=== PATIENT | male | born 1985 | race Caucasian/White ===

== ENCOUNTER 2020-07-23 10:43 | Inpatient (IN) | payer BC ==
--- NOTE | 2020-07-23 12:59 | HP ---
COWS - Scale Resting Pulse: 1= [place] 81-100 Sweatin= Chills/Flushing Restless Observation: 3= Extraneous Movement Pupil Size: 0= Normal to Room Light Bone or Joint Aches: 2= Severe Diffuse Aches Runny Nose/ Eye Tearin= Runny Nose/Eyes GI Upset > 30mins: 2= Nausea/Diarrhea Tremor Observation: 2= Slight Tremor Visible Yawning Observation: 1= 1-2x During Session Anxiety or Irritability: 2=Irritable/Anxious Goose Flesh Skin: 3=Piloerection COWS Score: 19 CIWA Score Nausea/Vomitin Muscle Tremors: 2 Anxiety: 2 Agitation: 2 Paroxysmal Sweats: 2 Orientation: 0-Oriented Tacttile Disturbances: 1-Very Mild Itch/Numbness Auditory Disturbances: 1-Very Mild Visual Disturbances: 1-Very Mild Sensitivity Headache: 0-None Present CIWA-Ar Total Score: 13 - Admission Criteria OASAS Guidelines: Admission for Medically Managed Detox: Requires at least one of the followin. CIWA greater than 12 2. Seizures within the past 24 hours 3. Delirium tremens within the past 24 hours 4. Hallucinations within the past 24 hours 5. Acute intervention needed for co occurring medical disorder 6. Acute intervention needed for co occurring psychiatric disorder 7. Severe withdrawal that cannot be handled at a lower level of care (continued vomiting, continued diarrhea, abnormal vital signs) requiring intravenous medication and/or fluids 8. Patient presents the following: CIWA greater than 12 Admission Criteria Met: Admission criteria met Admitting History and Physical - Smoking History Smoking history: Current every day smoker Have you smoked in the past 12 months: No Aproximately how many cigarettes per day: [address] [facility] Chief Complaint: I am here to get off of heroin Allergies/Adverse Reactions: Allergies Allergy/AdvReac Type Severity Reaction Status Date / Time Fish Containing Products Allergy Severe Verified 10/07/18 20:04 History of Present Illness: Patient is a 35 years old man who presents for heroin and alcohol detox. His last treatment was at [place] 1 week ago but he reports signing out AMA after 2 days. He reports his doctor gave him Xanax for 5 days which was completed 3 days ago. He denies seizures but reports overdose a year ago. Exam Limitations: No Limitations - Ebola screening Have you traveled outside of the country in the last 21 days: No Have you had contact with anyone from an Ebola affected area: No Have you been sick,other than usual withdrawal symptoms: No Do you have a fever: No - Review of Systems Constitutional: Chills, Loss of Appetite, Changes in sleep EENT: reports: Nose Congestion Respiratory: reports: No Symptoms reported Cardiac: reports: No Symptoms Reported GI: reports: Diarrhea, Nausea, Abdominal cramping : reports: No Symptoms Reported Musculoskeletal: reports: Back Pain, Joint Pain, Muscle Pain Integumentary: reports: Flushing Neuro: reports: Numbness, Tingling, Tremors Endocrine: reports: No Symptoms Reported Hematology: reports: No Symptoms Reported Psychiatric: reports: Anxious Other Systems: Reviewed and Negative Patient History - Patient Medical History Hx Anemia: No Hx Asthma: No Hx Chronic Obstructive Pulmonary Disease (COPD): No Hx Cancer: No Hx Cardiac Disorders: No Hx Congestive Heart Failure: No Hx Hypertension: No Hx Hypercholesterolemia: No Hx Pacemaker: No HX Cerebrovascular Accident: No Hx Seizures: No Hx Dementia: No Hx Diabetes: No Hx Gastrointestinal Disorders: No Hx Liver Disease: No Hx Genitourinary Disorders: No Hx Sexually Transmitted Disorders: No Hx Renal Disease (ESRD): No Hx Thyroid Disease: No Hx Human Immunodeficiency Virus (HIV): No Hx Hepatitis C: No Hx Depression: No Hx Suicide Attempt: No Hx Bipolar Disorder: No Hx Schizophrenia: No - Patient Surgical History Past Surgical History: No Hx Cholecystectomy: Yes (15 years ago) Anesthesia Reaction: No - PPD History Previous Implant?: No Documented Results: Negative w/o proof Implanted On Prior R Admission?: No PPD to be Administered?: Yes - Smoking Cessation Smoking history: Current every day smoker Have you smoked in the past 12 months: Yes Aproximately how many cigarettes per day: 40 Hx Chewing Tobacco Use: No Initiated information on smoking cessation: Yes 'Breaking Loose' booklet given: 07/23/20 - Substance & Tx. History Hx Alcohol Use: Yes Hx Substance Use: Yes Substance Use Type: Alcohol Hx Substance Use Treatment: Yes - Substances abused Alcohol Other (specify): whisky Substance route: Oral Amount used: 1 pint, 6 beers Age of first use: 9 Date of last use: 07/22/20 Heroin Substance route: Injection Frequency: Daily Amount used: 3 bags Age of first use: 26 Date of last use: 07/22/20 Marijuana/Hashish Substance route: Smoking Frequency: 1-3 times last 30 days Amount used: 1 gram Age of first use: 9 Date of last use: 07/22/20 Admission Physical Exam [facility] Physical General Appearance: Yes: No Apparent Distress, Irritable HEENTM: Yes: Hearing grossly Normal, Normocephalic, Normal Voice, THAI Respiratory: Yes: Chest Non-Tender, Lungs Clear, Normal Breath Sounds, No Respiratory Distress, No Accessory Muscle Use Neck: Yes: No masses,lesions,Nodules, Supple Breast: Yes: Breast Exam Deferred Cardiology: Yes: Regular Rhythm, Regular Rate, S1, S2 Abdominal: Yes: Normal Bowel Sounds, Non Tender, Soft Genitourinary: Yes: Within Normal Limits Back: Yes: Normal Inspection Musculoskeletal: Yes: full range of Motion, Gait Steady, Pelvis Stable, Back pain, Muscle Pain, Muscle weakness Extremities: Yes: Tremors, Other (left elbow and left knee bruise/abrasion from fall) Integumentary: Yes: Clammy, Track Michelle (both arms) Lymphatic: Yes: Within Normal Limits - Diagnostic (1) Opioid dependence with withdrawal Current Visit: Yes Status: Acute (2) Alcohol dependence with withdrawal Current Visit: Yes Status: Acute Qualifiers: Complication of substance-induced condition: uncomplicated Qualified C ode(s): F10.230 - Alcohol dependence with withdrawal, uncomplicated (3) Nicotine dependence with withdrawal Current Visit: Yes Status: Acute Qualifiers: Nicotine product type: cigarettes Qualified Code(s): F17.213 - Nicotine dependence, cigarettes, with withdrawal (4) Marijuana abuse Current Visit: Yes Status: Chronic Cleared for Admission [facility] - Detox or Rehab [facility] Level of Care: Medically Managed Detox Regimen/Protocol: Methadone/Valium Claeared for Rehab Admission: No Breathalyzer - Breathalyzer Breathalyzer: 0 Urine Drug Screen - Test Device Lot number: [id number] Expiration date: 02/22/22 - Control Is test valid?: Yes - Results Drug screen NEGATIVE: No Urine drug screen results: THC-Marijuana, FEN-Fentanyl, MOP-Opiates, MTD- Methadone, BZO-Benzodiazepines Inpatient Rehab Admission - Rehab Decision to Admit Inpatient rehab admission?: No
[2020-07-23] MEDS ORDERED: MAGNESIUM HYDROX 2400MG/30ML ORAL SUSPENSION 30 ML CUP PO PRN (13:16)
[2020-07-23] MEDS ORDERED: BISMUTH SUBSALICYLATE 524 MG/30 ML UD PO PRN (13:16)
[2020-07-23] MEDS ORDERED: NALOXONE HCL 0.4 MG/ML VIAL IM PRN (13:16)
[2020-07-23] MEDS ORDERED: ACETAMINOPHEN 325 MG TABLET (FP) PO PRN ×2 (13:16)
[2020-07-23] MEDS ORDERED: MAG HYDROX/AL HYDROX/SIMETH 30 ML UNIT-DOSE CUP PO PRN (13:16)
[2020-07-23] MEDS ORDERED: MENTHOL/PHENOL 1 EACH UD MM PRN (13:16)
[2020-07-23] MEDS ORDERED: MAGNESIUM CITRATE 300 ML BOTTLE PO PRN (13:16)
[2020-07-23] MEDS ORDERED: cloNIDine HCL 0.1 MG TABLET PO PRN (13:16)
[2020-07-23] MEDS ORDERED: METHOCARBAMOL 500 MG TABLET PO PRN (13:16)
[2020-07-23] MEDS ORDERED: IBUPROFEN 400 MG TABLET (FP) PO PRN (13:16)
[2020-07-23] MEDS ORDERED: METHADONE HCL 10 MG TABLET (FOR DETOX USE ONLY) PO ONE (13:16)
[2020-07-23 13:58] VITALS: BMI 26.0
[2020-07-23] MEDS: NICOTINE 14 MG/24 HOURS TOPICAL PATCH TD SCH (14:51)
[2020-07-23] MEDS: diazePAM 5 MG TABLET PO SCH ×2 (14:54→21:25)
--- NOTE | 2020-07-23 15:53 | EKG ---
Test Reason : Blood Pressure : / mmHG Vent. Rate : 066 BPM Atrial Rate : 066 BPM P-R Int : 154 ms QRS Dur : 086 ms QT Int : 440 ms P-R-T Axes : 038 045 016 degrees QTc Int : 461 ms NORMAL SINUS RHYTHM NORMAL ECG NO PREVIOUS ECGS AVAILABLE Confirmed by Leodan Fontanez ([id number]) on 07/23/2020 3:52:38 PM Referred By: Confirmed By:Leodan Fontanez
[2020-07-23] MEDS: diazePAM 5 MG TABLET PO PRN (17:22)
[2020-07-23] MEDS: THIAMINE HCL 100 MG TABLET (FP) PO SCH (21:28)
[2020-07-23] MEDS: MELATONIN 5 MG TABLETS PO SCH (21:28)
[2020-07-24] MEDS: diazePAM 5 MG TABLET PO SCH ×3 (06:06→23:09)
[2020-07-24] MEDS: NICOTINE POLACRILEX 2 MG GUM BUC PRN ×2 (06:07→11:26)
[2020-07-24] MEDS ORDERED: METHADONE HCL 10 MG TABLET (FOR DETOX USE ONLY) ONE (09:24)
[2020-07-24] MEDS ORDERED: METHADONE HCL 5 MG TABLET (FOR DETOX USE ONLY) ONE (09:24)
--- NOTE | 2020-07-24 09:28 | CONSULT ---
[facility] Psychiatric Consult - Data Date of interview: 07/24/20 Admission source: Self-referred Identifying data: Mr Gibbons is a 35 years old single male, receiving unemployment, living in a house, seeking detox treatment for alcohol, opioid Substance Abuse History: Reports history of alcohol, heroin and marijuana use. Refer to addiction counselor's summary for further information Medical History: Significant for histry of cholecystectomy 15 years ago. Smokes cigaerettes 2 ppd Psychiatric History: This is patient's first admission to this facility. He denies history of previous psychiatric inpatient and outpatient treatment as well as suicidal attempt. Reports being prescribed Xanax once for anxiety associated with alcohol withdrawal and Ambien for insomnia by his primary care physician. At present, reports feeling depressed, anxious and sleeping poorly Physical/Sexual Abuse/Trauma History: Denies history of abuse as a child or DV relationship as an adult Mental Status Exam - Mental Status Exam Alert and Oriented to: Time, Place, Person Cognitive Function: Fair Patient Appearance: Well Groomed Mood: Depressed, Anxious Affect: Appropriate Patient Behavior: Cooperative Speech Pattern: Clear Voice Loudness: Normal Thought Process: Intact, Goal Oriented Thought Disorder: Not Present Hallucinations: Denies Suicidal Ideation: Denies Homicidal Ideation: Denies Insight/Judgement: Poor Sleep: Poorly Appetite: Fair Muscle strength/Tone: Normal Gait/Station: Normal Psychiatric Findings - Problem List ([place] 1, 2,3) (1) Substance induced mood disorder Current Visit: Yes Status: Acute (2) Substance-induced anxiety disorder Current Visit: Yes Status: Acute (3) Substance-induced sleep disorder Current Visit: Yes Status: Acute (4) Alcohol dependence with withdrawal Current Visit: Yes Status: Acute Qualifiers: Complication of substance-induced condition: uncomplicated Qualified Code(s): F10.230 - Alcohol dependence with withdrawal, uncomplicated (5) Opioid dependence with withdrawal Current Visit: Yes Status: Acute (6) Cannabis abuse Current Visit: Yes Status: Acute (7) Nicotine dependence with withdrawal Current Visit: Yes Status: Chronic Qualifiers: Nicotine product type: cigarettes Qualified Code(s): F17.213 - Nicotine dependence, cigarettes, with withdrawal - Initial Treatment Plan Initial Treatment Plan: 1) Start Belsomra 10 mg po HS prn for insomnia. 2) Continue inpatient detoxification
[2020-07-24] MEDS ORDERED: METHADONE (DETOX) 20 MG, METHADONE (DETOX) 5 MG PO ONE (10:00)
[2020-07-24 10:03] LABS: HEMATOCRIT 34.2 % (35.4-49); HEMOGLOBIN 11.1 GM/dL (11.7-16.9); MCH 28.1 pg (25.7-33.7); MCHC 32.5 g/dl (32.0-35.9); MEAN CELL VOLUME 86.2 fl (80-96); MEAN PLT VOLUME 7.8 fl (7.5-11.1); PLATELET COUNT 258 K/MM3 (134-434); RBC 3.97 M/mm3 (4.00-5.60); WHITE BLOOD COUNT 6.2 K/mm3 (4.0-10.0)
[2020-07-24 10:21] LABS: BILIRUBIN,TOTAL 0.6 mg/dL (0.2-1); BLOOD UREA NITROGEN 11.3 mg/dL (7-18); CALCIUM 8.4 mg/dL (8.5-10.1); CREATININE 0.7 mg/dL (0.55-1.3); POTASSIUM 4.3 mmol/L (3.5-5.1); TOT PROT 7.2 g/dl (6.4-8.2)
[2020-07-24] MEDS: PRENATAL VITAMINS W/ FOLIC ACID TABLET (FP) PO SCH (11:23)
[2020-07-24] MEDS: NICOTINE 14 MG/24 HOURS TOPICAL PATCH TD SCH (11:23)
[2020-07-24] MEDS: diazePAM 5 MG TABLET PO PRN ×2 (12:00→17:03)
--- NOTE | 2020-07-24 12:53 | PN ---
S CIWA - CIWA Score Nausea/Vomitin Muscle Tremors: 2 Anxiety: 2 Agitation: 2 Paroxysmal Sweats: No Perspiration Orientation: 0-Oriented Tacttile Disturbances: 1-Very Mild Itch/Numbness Auditory Disturbances: 0-None Visual Disturbances: 0-None Headache: 2-Mild CIWA-Ar Total Score: 11 BHS COWS - Scale Resting Pulse: 0= [place] 80 or Below Sweatin= No chills or Flushing Restless Observation: 0= Sits Still Pupil Size: 0= Normal to Room Light Bone or Joint Aches: 1= Mild Discomfort Runny Nose/ Eye Tearin= Runny Nose/Eyes GI Upset > 30mins: 1= Stomach Cramp Tremor Observation of Outstretched Hands: 2= Slight Tremor Visible Yawning Observation: 1= 1-2x During Session Anxiety or Irritability: 2=Irritable/Anxious Goose Flesh Skin: 0=Smooth Skin COWS Score: 9 S Progress Note (SOAP) Subjective: alert,irritable,anxious,interrupted sleep,pain in the body and back,tremor Objective: 07/24/20 12:55 Vital Signs Temperature 98.2 F 07/24/20 08:31 Pulse Rate 79 07/24/20 11:40 Respiratory Rate 19 07/24/20 08:31 Blood Pressure 101/73 07/24/20 11:40 O2 Sat by Pulse Oximetry (%) 99 07/24/20 08:31 07/24/20 12:56 Laboratory Last Values WBC 6.2 K/mm3 (4.0-10.0) 07/24/20 07:40 RBC 3.97 M/mm3 (4.00-5.60) L 07/24/20 07:40 Hgb 11.1 GM/dL (11.7-16.9) L 07/24/20 07:40 Hct 34.2 % (35.4-49) L 07/24/20 07:40 MCV 86.2 fl (80-96) 07/24/20 07:40 MCH 28.1 pg (25.7-33.7) 07/24/20 07:40 MCHC 32.5 g/dl (32.0-35.9) 07/24/20 07:40 RDW 15.0 % (11.9-15.9) 07/24/20 07:40 Plt Count 258 K/MM3 (134-434) 07/24/20 07:40 MPV 7.8 fl (7.5-11.1) 07/24/20 07:40 Sodium 141 mmol/L (136-145) 07/24/20 07:40 Potassium 4.3 mmol/L (3.5-5.1) 07/24/20 07:40 Chloride 106 mmol/L (98-107) 07/24/20 07:40 Carbon Dioxide 30 mmol/L (21-32) 07/24/20 07:40 Anion Gap 5 MMOL/L (8-16) L 07/24/20 07:40 BUN 11.3 mg/dL (7-18) 07/24/20 07:40 Creatinine 0.7 mg/dL (0.55-1.3) 07/24/20 07:40 Est GFR (CKD-EPI)AfAm 139.73 07/24/20 07:40 Est GFR (CKD-EPI)NonAf 120.56 07/24/20 07:40 Random Glucose 99 mg/dL (74-106) 07/24/20 07:40 Calcium 8.4 mg/dL (8.5-10.1) L 07/24/20 07:40 Total Bilirubin 0.6 mg/dL (0.2-1) 07/24/20 07:40 AST 21 U/L (15-37) 07/24/20 07:40 ALT 26 U/L (13-61) 07/24/20 07:40 Alkaline Phosphatase 73 U/L (45-117) 07/24/20 07:40 Total Protein 7.2 g/dl (6.4-8.2) 07/24/20 07:40 Albumin 3.0 g/dl (3.4-5.0) L 07/24/20 07:40 Syphilis Serology Non-reactive (NONREACTIVE) 07/24/20 07:40 HIV Ag/Ab Combo Qual Negative (NEGATIVE) 07/24/20 07:40 Assessment: 07/24/20 12:56 withdrawal symptom Plan: continue detox methadone and valium regimen
[2020-07-24] MEDS ORDERED: SUVOREXANT 10 MG TABLET PO PRN (22:00)
[2020-07-24] MEDS: MELATONIN 5 MG TABLETS PO SCH (23:09)
[2020-07-24] MEDS: THIAMINE HCL 100 MG TABLET (FP) PO SCH (23:10)
[2020-07-25] MEDS: diazePAM 5 MG TABLET PO SCH ×2 (06:38→19:11)
[2020-07-25] MEDS ORDERED: METHADONE HCL 10 MG TABLET (FOR DETOX USE ONLY) PO ONE (10:00)
--- NOTE | 2020-07-25 12:11 | PN ---
BHS COWS - Scale Resting Pulse: 1= [place] 81-100 Sweatin= No chills or Flushing Restless Observation: 0= Sits Still Pupil Size: 0= Normal to Room Light Bone or Joint Aches: 1= Mild Discomfort Runny Nose/ Eye Tearin= Nasal Congestion GI Upset > 30mins: 2= Nausea/Diarrhea Tremor Observation of Outstretched Hands: 2= Slight Tremor Visible Yawning Observation: 1= 1-2x During Session Anxiety or Irritability: 2=Irritable/Anxious Goose Flesh Skin: 0=Smooth Skin COWS Score: 10 BHS Progress Note (SOAP) Subjective: alert,irritable,anxious,interrupted sleep,tremor,pain in the body and back,nausea Objective: 07/25/20 12:17 Vital Signs Temperature 98.0 F 07/25/20 08:25 Pulse Rate 89 07/25/20 08:25 Respiratory Rate 16 07/25/20 08:25 Blood Pressure 115/72 07/25/20 08:25 O2 Sat by Pulse Oximetry (%) 99 07/25/20 05:49 Laboratory Last Values WBC 6.2 K/mm3 (4.0-10.0) 07/24/20 07:40 RBC 3.97 M/mm3 (4.00-5.60) L 07/24/20 07:40 Hgb 11.1 GM/dL (11.7-16.9) L 07/24/20 07:40 Hct 34.2 % (35.4-49) L 07/24/20 07:40 MCV 86.2 fl (80-96) 07/24/20 07:40 MCH 28.1 pg (25.7-33.7) 07/24/20 07:40 MCHC 32.5 g/dl (32.0-35.9) 07/24/20 07:40 RDW 15.0 % (11.9-15.9) 07/24/20 07:40 Plt Count 258 K/MM3 (134-434) 07/24/20 07:40 MPV 7.8 fl (7.5-11.1) 07/24/20 07:40 Sodium 141 mmol/L (136-145) 07/24/20 07:40 Potassium 4.3 mmol/L (3.5-5.1) 07/24/20 07:40 Chloride 106 mmol/L (98-107) 07/24/20 07:40 Carbon Dioxide 30 mmol/L (21-32) 07/24/20 07:40 Anion Gap 5 MMOL/L (8-16) L 07/24/20 07:40 BUN 11.3 mg/dL (7-18) 07/24/20 07:40 Creatinine 0.7 mg/dL (0.55-1.3) 07/24/20 07:40 Est GFR (CKD-EPI)AfAm 139.73 07/24/20 07:40 Est GFR (CKD-EPI)NonAf 120.56 07/24/20 07:40 Random Glucose 99 mg/dL (74-106) 07/24/20 07:40 Calcium 8.4 mg/dL (8.5-10.1) L 07/24/20 07:40 Total Bilirubin 0.6 mg/dL (0.2-1) 07/24/20 07:40 AST 21 U/L (15-37) 07/24/20 07:40 ALT 26 U/L (13-61) 07/24/20 07:40 Alkaline Phosphatase 73 U/L (45-117) 07/24/20 07:40 Total Protein 7.2 g/dl (6.4-8.2) 07/24/20 07:40 Albumin 3.0 g/dl (3.4-5.0) L 07/24/20 07:40 Syphilis Serology Non-reactive (NONREACTIVE) 07/24/20 07:40 COVID-19 ([facility]) Not detected (Not Detected) 07/23/20 13:40 HIV Ag/Ab Combo Qual Negative (NEGATIVE) 07/24/20 07:40 Assessment: 07/25/20 12:17 withdrawal symptom Plan: continue detox methadone regimen,valium 10 mgs po q 4 hrs prn for severe withdrawal for 72 hrs
[2020-07-25] MEDS: PRENATAL VITAMINS W/ FOLIC ACID TABLET (FP) PO SCH (12:12)
[2020-07-25] MEDS: diazePAM 5 MG TABLET PO PRN ×2 (12:12→22:26)
[2020-07-25] MEDS: NICOTINE 14 MG/24 HOURS TOPICAL PATCH TD SCH (12:12)
[2020-07-25] MEDS: THIAMINE HCL 100 MG TABLET (FP) PO SCH (22:26)
[2020-07-25] MEDS: MELATONIN 5 MG TABLETS PO SCH (23:25)
[2020-07-26] MEDS ORDERED: diazePAM 5 MG TABLET PO ONE (06:00)
[2020-07-26] MEDS ORDERED: METHADONE HCL 10 MG TABLET (FOR DETOX USE ONLY) ONE (09:11)
[2020-07-26] MEDS ORDERED: METHADONE HCL 5 MG TABLET (FOR DETOX USE ONLY) ONE (09:11)
[2020-07-26 09:28] VITALS: BP 139/79; PULSE 48; TEMP 98.6
[2020-07-26] MEDS ORDERED: TRIMETHOBENZAMIDE HCL 200MG/2ML INJ IM PRN (09:29)
[2020-07-26] MEDS ORDERED: METHADONE (DETOX) 10 MG, METHADONE (DETOX) 5 MG PO ONE (10:00)
[2020-07-26] MEDS ORDERED: LOPERAMIDE HCL 2 MG CAPSULE PO PRN (10:28)
[2020-07-26] MEDS: NICOTINE 14 MG/24 HOURS TOPICAL PATCH TD SCH (10:53)
[2020-07-26] MEDS: PRENATAL VITAMINS W/ FOLIC ACID TABLET (FP) PO SCH (10:53)
--- NOTE | 2020-07-26 11:18 | PN ---
BHS COWS - Scale Resting Pulse: 0= [place] 80 or Below Sweatin= No chills or Flushing Restless Observation: 0= Sits Still Pupil Size: 0= Normal to Room Light Bone or Joint Aches: 1= Mild Discomfort Runny Nose/ Eye Tearin= Nasal Congestion GI Upset > 30mins: 2= Nausea/Diarrhea Tremor Observation of Outstretched Hands: 1= Tremor [place], Not Seen Yawning Observation: 0= None Anxiety or Irritability: 2=Irritable/Anxious Goose Flesh Skin: 0=Smooth Skin COWS Score: 7 BHS Progress Note (SOAP) Subjective: alert,irritable,anxious,interrupted sleep,diarrhea,pain in body,poor appetite Objective: 07/26/20 11:16 Vital Signs Temperature 98.6 F 07/26/20 08:55 Pulse Rate 48 L 07/26/20 08:55 Respiratory Rate 18 07/26/20 08:55 Blood Pressure 139/79 07/26/20 08:55 O2 Sat by Pulse Oximetry (%) 99 07/26/20 08:55 Assessment: 07/26/20 11:16 withdrawal symptom Plan: continue detox methadone regimen,tigan 200 mgs im q 8 hrs for nausea,vomiting,imodium prn for diarrhea,d/c petobismal,fluid,ensure plus 120 mls po bid, close monitoring
[2020-07-26] MEDS: diazePAM 5 MG TABLET PO PRN (12:39)
--- NOTE | 2020-07-26 14:36 | PN ---
[facility] CIWA - CIWA Score Nausea/Vomitin-No Nausea/No Vomiting Muscle Tremors: None Anxiety: 1-Mildly Anxious Agitation: 0-Normal Activity Paroxysmal Sweats: No Perspiration Orientation: 0-Oriented Tacttile Disturbances: 0-None Auditory Disturbances: 0-None Visual Disturbances: 0-None Headache: 0-None Present CIWA-Ar Total Score: 1 [facility] Progress Note (SOAP) Subjective: alert,no complaint Objective: 07/26/20 14:34 bp 120/77,p59,r18,t97.1 Assessment: 07/26/20 14:34 no withdrawal symptom Plan: stable for discharge,follow up with MAT at [place] near his home,patient used to be on methadone maintenance before last year
--- NOTE | 2020-07-26 14:47 | DS ---
[facility] Detox Discharge Summary Admission Date: 07/23/20 Discharge Date: 07/26/20 - History Present History: Alcohol Dependence, Cannabis Dependence, Opioid Dependence Additional Comments: alert,oriented x 3 ambulation on the unit lung clear on auscultation bilaterally abdomen soft,no distension,no pain,no tenderness no swelling of legs no withdrawal symptom patient is stable for discharge left the unit on stable condition follow up with MAT at [facility] methadone maintenance clinic ,patient has been in the program last year total time of discharge 35 minutes Pertinent Past History: nicotine dependence - Physical Exam Results Vital Signs: Vital Signs Temperature 98.6 F 07/26/20 08:55 Pulse Rate 48 L 07/26/20 08:55 Respiratory Rate 18 07/26/20 08:55 Blood Pressure 139/79 07/26/20 08:55 O2 Sat by Pulse Oximetry (%) 99 07/26/20 08:55 Pertinent Admission Physical Exam Findings: withdrawal sings and symptom Vital Signs Temperature 98.6 F 07/26/20 08:55 Pulse Rate 48 L 07/26/20 08:55 Respiratory Rate 18 07/26/20 08:55 Blood Pressure 139/79 07/26/20 08:55 O2 Sat by Pulse Oximetry (%) 99 07/26/20 08:55 Laboratory Last Values WBC 6.2 K/mm3 (4.0-10.0) 07/24/20 07:40 RBC 3.97 M/mm3 (4.00-5.60) L 07/24/20 07:40 Hgb 11.1 GM/dL (11.7-16.9) L 07/24/20 07:40 Hct 34.2 % (35.4-49) L 07/24/20 07:40 MCV 86.2 fl (80-96) 07/24/20 07:40 MCH 28.1 pg (25.7-33.7) 07/24/20 07:40 MCHC 32.5 g/dl (32.0-35.9) 07/24/20 07:40 RDW 15.0 % (11.9-15.9) 07/24/20 07:40 Plt Count 258 K/MM3 (134-434) 07/24/20 07:40 MPV 7.8 fl (7.5-11.1) 07/24/20 07:40 Sodium 141 mmol/L (136-145) 07/24/20 07:40 Potassium 4.3 mmol/L (3.5-5.1) 07/24/20 07:40 Chloride 106 mmol/L (98-107) 07/24/20 07:40 Carbon Dioxide 30 mmol/L (21-32) 07/24/20 07:40 Anion Gap 5 MMOL/L (8-16) L 07/24/20 07:40 BUN 11.3 mg/dL (7-18) 07/24/20 07:40 Creatinine 0.7 mg/dL (0.55-1.3) 07/24/20 07:40 Est GFR (CKD-EPI)AfAm 139.73 07/24/20 07:40 Est GFR (CKD-EPI)NonAf 120.56 07/24/20 07:40 Random Glucose 99 mg/dL (74-106) 07/24/20 07:40 Calcium 8.4 mg/dL (8.5-10.1) L 07/24/20 07:40 Total Bilirubin 0.6 mg/dL (0.2-1) 07/24/20 07:40 AST 21 U/L (15-37) 07/24/20 07:40 ALT 26 U/L (13-61) 07/24/20 07:40 Alkaline Phosphatase 73 U/L (45-117) 07/24/20 07:40 Total Protein 7.2 g/dl (6.4-8.2) 07/24/20 07:40 Albumin 3.0 g/dl (3.4-5.0) L 07/24/20 07:40 Syphilis Serology Non-reactive (NONREACTIVE) 07/24/20 07:40 COVID-19 ([facility]) Not detected (Not Detected) 07/23/20 13:40 HIV Ag/Ab Combo Qual Negative (NEGATIVE) 07/24/20 07:40 - Treatment Hospital Course: Detox Protocol Followed, Detoxed Safely, Responded well, Discharged Condition Good - Medication Discharge Medications: Ambulatory Orders NK [No Known Home Medication] 10/07/18 - Diagnosis (1) Opioid dependence with withdrawal Current Visit: Yes Status: Acute (2) Alcohol dependence with withdrawal Current Visit: Yes Status: Acute Qualifiers: Complication of substance-induced condition: uncomplicated Qualified Code(s): F10.230 - Alcohol dependence with withdrawal, uncomplicated (3) Cannabis abuse Current Visit: Yes Status: Acute (4) Nicotine dependence with withdrawal Current Visit: Yes Status: Chronic Qualifiers: Nicotine product type: cigarettes Qualified Code(s): F17.213 - Nicotine dependence, cigarettes, with withdrawal - AMA Did Patient Leave Against Medical Advice: No
[2020-07-26] MEDS ORDERED: NALOXONE (NARCAN) HCL 4 MG/0.1 ML SPRAY NS ONE (15:00)
[2020-07-27] MEDS ORDERED: METHADONE HCL 10 MG TABLET (FOR DETOX USE ONLY) PO ONE (10:00)
[2020-07-28] MEDS ORDERED: METHADONE HCL 5 MG TABLET (FOR DETOX USE ONLY) PO ONE (06:00)
== END 2020-07-26 14:30 | disposition home or self-care (01) | DRG 773 ==
LOC: YASAS 10:43 → Y6N 13:30
PROVIDERS: ADMIT Allergy & Immunology; ATTEND Allergy & Immunology
PROC: HZ2ZZZZ Detoxification Services for Substance Abuse Treatment (ICD-10-PCS; principal; 2020-07-23)
DX: F11.23 Opioid dependence with withdrawal (principal); F10.230 Alcohol dependence with withdrawal, uncomplicated; F12.20 Cannabis dependence, uncomplicated; F17.210 Nicotine dependence, cigarettes, uncomplicated; F19.282 Other psychoactive substance dependence with psychoactive substance-induced sleep disorder; F19.280 Other psychoactive substance dependence with psychoactive substance-induced anxiety disorder; F19.24 Other psychoactive substance dependence with psychoactive substance-induced mood disorder; Z90.49 Acquired absence of other specified parts of digestive tract; Z56.0 Unemployment, unspecified; Z91.013 Allergy to seafood
CPT/HCPCS: 36415; 80053; 85027; 86780; 87389; 93005; 93010; U0003

== ENCOUNTER 2020-09-30 10:30 | Inpatient (IN) | payer BC ==
[2020-09-30 11:02] VITALS: BMI 24.4
[2020-09-30] MEDS ORDERED: MAG HYDROX/AL HYDROX/SIMETH 30 ML UNIT-DOSE CUP PO PRN (11:40)
[2020-09-30] MEDS ORDERED: MAGNESIUM CITRATE 300 ML BOTTLE PO PRN (11:40)
[2020-09-30] MEDS ORDERED: diazePAM 5 MG TABLET PO ONE (11:40)
[2020-09-30] MEDS ORDERED: MAGNESIUM HYDROX 2400MG/30ML ORAL SUSPENSION 30 ML CUP PO PRN (11:40)
[2020-09-30] MEDS ORDERED: ONDANSETRON *ODT* 4 MG TABLET SL PRN (11:40)
[2020-09-30] MEDS ORDERED: IBUPROFEN 400 MG TABLET (FP) PO PRN (11:40)
[2020-09-30] MEDS ORDERED: METHADONE HCL 10 MG TABLET (FOR DETOX USE ONLY) PO ONE (11:40)
[2020-09-30] MEDS ORDERED: hydrOXYzine PAMOATE 25 MG CAPSULE (FP) PO PRN (11:40)
[2020-09-30] MEDS ORDERED: MENTHOL/PHENOL 1 EACH UD MM PRN (11:40)
[2020-09-30] MEDS ORDERED: ACETAMINOPHEN 325 MG TABLET (FP) PO PRN ×2 (11:40)
[2020-09-30] MEDS ORDERED: BISMUTH SUBSALICYLATE 524 MG/30 ML UD PO PRN (11:40)
[2020-09-30] MEDS: PRENATAL VITAMINS W/ FOLIC ACID TABLET (FP) PO SCH (12:45)
[2020-09-30] MEDS ORDERED: MASKS NR ONE (12:48)
[2020-09-30] MEDS: NICOTINE POLACRILEX 4 MG GUM BUC PRN (13:54)
[2020-09-30] MEDS: METHYL SALICYLATE/MENTHOL OINT 30 GM TUBE TP SCH ×2 (14:25→22:09)
[2020-09-30] MEDS: diazePAM 5 MG TABLET PO PRN ×3 (14:45→23:37)
[2020-09-30] MEDS: diazePAM 5 MG TABLET PO SCH ×2 (16:53→22:09)
[2020-09-30] MEDS: cloNIDine HCL 0.1 MG TABLET PO PRN (18:51)
[2020-09-30] MEDS: MELATONIN 5 MG TABLETS PO SCH (22:09)
[2020-09-30] MEDS: THIAMINE HCL 100 MG TABLET (FP) PO SCH (22:09)
[2020-09-30] MEDS: SUVOREXANT 10 MG TABLET PO PRN (23:34)
[2020-10-01] MEDS: diazePAM 5 MG TABLET PO SCH ×4 (05:35→22:01)
[2020-10-01] MEDS: diazePAM 5 MG TABLET PO PRN ×4 (08:21→23:29)
[2020-10-01] MEDS ORDERED: METHADONE HCL 5 MG TABLET (FOR DETOX USE ONLY) ONE (09:06)
[2020-10-01] MEDS ORDERED: METHADONE HCL 10 MG TABLET (FOR DETOX USE ONLY) ONE (09:06)
[2020-10-01] MEDS ORDERED: METHADONE (DETOX) 20 MG, METHADONE (DETOX) 5 MG PO ONE (10:00)
[2020-10-01] MEDS: METHYL SALICYLATE/MENTHOL OINT 30 GM TUBE TP SCH ×2 (10:11→22:16)
[2020-10-01] MEDS: PRENATAL VITAMINS W/ FOLIC ACID TABLET (FP) PO SCH (10:11)
[2020-10-01] MEDS ORDERED: GABAPENTIN 100 MG CAPSULE PO ONE (11:09)
[2020-10-01] MEDS ORDERED: ACETAMINOPHEN 325 MG TABLET (FP) PO ONE (11:12)
[2020-10-01 12:24] LABS: POTASSIUM 3.8 mmol/L (3.5-5.1)
[2020-10-01 12:26] LABS: CALCIUM 8.6 mg/dL (8.5-10.1); HEMATOCRIT 37.5 % (35.4-49); HEMOGLOBIN 12.3 GM/dL (11.7-16.9); MCH 28.3 pg (25.7-33.7); MCHC 32.7 g/dl (32.0-35.9); MEAN CELL VOLUME 86.6 fl (80-96); MEAN PLT VOLUME 8.1 fl (7.5-11.1); PLATELET COUNT 296 K/MM3 (134-434); RBC 4.33 M/mm3 (4.00-5.60); RDW 15.1 % (11.9-15.9); WHITE BLOOD COUNT 6.5 K/mm3 (4.0-10.0)
[2020-10-01 12:27] LABS: ALBUMIN 3.2 g/dl (3.4-5.0)
[2020-10-01 12:30] LABS: CREATININE 0.9 mg/dL (0.55-1.3)
[2020-10-01 12:31] LABS: BILIRUBIN,TOTAL 0.2 mg/dL (0.2-1); TOT PROT 7.1 g/dl (6.4-8.2)
[2020-10-01] MEDS: cloNIDine HCL 0.1 MG TABLET PO PRN ×3 (13:11→23:29)
[2020-10-01 13:22] LABS: HIV INTERPRETATION NEGATIVE (NEGATIVE)
[2020-10-01] MEDS: hydrOXYzine PAMOATE 50 MG CAPSULE (FP) PO SCH ×3 (14:02→23:29)
[2020-10-01] MEDS: THIAMINE HCL 100 MG TABLET (FP) PO SCH (22:02)
[2020-10-01] MEDS: NICOTINE POLACRILEX 4 MG GUM BUC PRN (22:03)
[2020-10-01] MEDS: MELATONIN 5 MG TABLETS PO SCH (22:16)
[2020-10-01] MEDS: SUVOREXANT 10 MG TABLET PO PRN (23:30)
[2020-10-02] MEDS: hydrOXYzine PAMOATE 50 MG CAPSULE (FP) PO SCH ×4 (06:10→23:21)
[2020-10-02] MEDS: diazePAM 5 MG TABLET PO SCH ×3 (06:11→22:19)
[2020-10-02] MEDS: diazePAM 5 MG TABLET PO PRN ×3 (08:51→23:25)
[2020-10-02] MEDS: cloNIDine HCL 0.1 MG TABLET PO PRN ×3 (08:52→23:21)
[2020-10-02] MEDS ORDERED: METHADONE HCL 10 MG TABLET (FOR DETOX USE ONLY) PO ONE (10:00)
[2020-10-02] MEDS: METHOCARBAMOL 500 MG TABLET PO PRN ×3 (11:03→23:21)
[2020-10-02] MEDS: PRENATAL VITAMINS W/ FOLIC ACID TABLET (FP) PO SCH (11:03)
[2020-10-02] MEDS: METHYL SALICYLATE/MENTHOL OINT 30 GM TUBE TP SCH ×2 (11:04→22:37)
[2020-10-02] MEDS: NICOTINE POLACRILEX 4 MG GUM BUC PRN (11:05)
[2020-10-02] MEDS: THIAMINE HCL 100 MG TABLET (FP) PO SCH (22:19)
[2020-10-02] MEDS: MELATONIN 5 MG TABLETS PO SCH (23:11)
[2020-10-02] MEDS: SUVOREXANT 10 MG TABLET PO PRN (23:18)
[2020-10-03] MEDS: hydrOXYzine PAMOATE 50 MG CAPSULE (FP) PO SCH ×3 (06:16→17:26)
[2020-10-03] MEDS: diazePAM 5 MG TABLET PO SCH ×2 (07:16→17:26)
[2020-10-03] MEDS: METHOCARBAMOL 500 MG TABLET PO PRN ×2 (08:53→17:26)
[2020-10-03] MEDS: diazePAM 5 MG TABLET PO PRN (08:53)
[2020-10-03] MEDS ORDERED: METHADONE HCL 5 MG TABLET (FOR DETOX USE ONLY) ONE (09:28)
[2020-10-03] MEDS ORDERED: METHADONE HCL 10 MG TABLET (FOR DETOX USE ONLY) ONE (09:28)
[2020-10-03] MEDS ORDERED: METHADONE (DETOX) 10 MG, METHADONE (DETOX) 5 MG PO ONE (10:00)
[2020-10-03] MEDS: PRENATAL VITAMINS W/ FOLIC ACID TABLET (FP) PO SCH (10:24)
[2020-10-03] MEDS: METHYL SALICYLATE/MENTHOL OINT 30 GM TUBE TP SCH (10:24)
[2020-10-03] MEDS ORDERED: cloNIDine HCL 0.1 MG TABLET PO PRN (10:25)
[2020-10-03] MEDS ORDERED: diazePAM 5 MG TABLET PO ONE (14:00)
[2020-10-03 19:39] VITALS: BP 115/71; PULSE 89
[2020-10-03 19:47] VITALS: TEMP 98.4
[2020-10-04] MEDS ORDERED: diazePAM 5 MG TABLET PO ONE (06:00)
[2020-10-04] MEDS ORDERED: METHADONE HCL 10 MG TABLET (FOR DETOX USE ONLY) PO ONE (10:00)
[2020-10-05] MEDS ORDERED: METHADONE HCL 5 MG TABLET (FOR DETOX USE ONLY) PO ONE (06:00)
== END 2020-10-03 19:54 | disposition left against medical advice (07) | DRG 770 ==
LOC: YASAS 10:30 → Y3N 11:42
PROVIDERS: ADMIT Allergy & Immunology; ATTEND Allergy & Immunology
PROC: HZ2ZZZZ Detoxification Services for Substance Abuse Treatment (ICD-10-PCS; principal; 2020-09-30)
DX: F11.23 Opioid dependence with withdrawal (principal); F11.20 Opioid dependence, uncomplicated; F13.20 Sedative, hypnotic or anxiolytic dependence, uncomplicated; F19.24 Other psychoactive substance dependence with psychoactive substance-induced mood disorder; F32.9 Major depressive disorder, single episode, unspecified; F41.9 Anxiety disorder, unspecified; Z90.49 Acquired absence of other specified parts of digestive tract; Z91.013 Allergy to seafood; S49.82XD Other specified injuries of left shoulder and upper arm, subsequent encounter; W05.1XXD Fall from non-moving nonmotorized scooter, subsequent encounter
CPT/HCPCS: 36415; 80053; 85027; 86780; 87389; C9803; J0735; Q0162; U0003

== ENCOUNTER 2024-04-06 19:57 | Inpatient (IN) | payer BC ==
[2024-04-06 21:52] VITALS: BMI 25.0
[2024-04-06] MEDS ORDERED: guaiFENesin 600 MG TABLET.ER (FP) PO PRN (23:18)
[2024-04-06] MEDS ORDERED: NALOXONE HCL (KLOXXADO) 8 MG SPRAY NS PRN (23:18)
[2024-04-06] MEDS ORDERED: BENZONATATE 200 MG CAPSULE PO PRN (23:18)
[2024-04-06] MEDS ORDERED: MAGNESIUM HYDROX 2400MG/30ML ORAL SUSPENSION 30 ML CUP PO PRN (23:18)
[2024-04-06] MEDS ORDERED: LOPERAMIDE HCL 2 MG CAPSULE PO PRN (23:18)
[2024-04-06] MEDS ORDERED: ACETAMINOPHEN 325 MG TABLET (FP) PO PRN (23:18)
[2024-04-06] MEDS ORDERED: POLYETHYLENE GLYCOL (HEALTHYLAX) 3350 17 GM PACKET PO PRN (23:18)
[2024-04-06] MEDS ORDERED: NALOXONE HCL 0.4 MG/ML VIAL IM PRN (23:18)
[2024-04-06] MEDS ORDERED: BENZOCAINE/MENTHOL (CHLORASEPTIC ) LOZENGE MM PRN (23:18)
[2024-04-06] MEDS ORDERED: BISMUTH SUBSALICYLATE 524 MG/30 ML PO PRN (23:18)
[2024-04-06] MEDS ORDERED: DICYCLOMINE HCL 10 MG CAPSULE PO PRN (23:18)
[2024-04-06] MEDS ORDERED: MAG HYDROX/AL HYDROX/SIMETH 30 ML UNIT-DOSE CUP PO PRN (23:18)
[2024-04-06] MEDS ORDERED: IBUPROFEN 400 MG TABLET (FP) PO PRN (23:18)
[2024-04-06] MEDS ORDERED: IBUPROFEN 600 MG TABLET (FP) PO PRN (23:18)
[2024-04-07] MEDS: METHOCARBAMOL 500 MG TABLET PO PRN (01:14)
[2024-04-07] MEDS: hydrOXYzine PAMOATE 25 MG CAPSULE (FP) PO PRN (01:15)
[2024-04-07] MEDS: PRENATAL VITAMINS W/ FOLIC ACID TABLET (FP) PO SCH (10:23)
[2024-04-07] MEDS: NICOTINE 21 MG/24 HOURS TOPICAL PATCH TD SCH (10:23)
[2024-04-07] MEDS: diazePAM 5 MG TABLET PO PRN (15:10)
[2024-04-07] MEDS: methaDONE HCL 10 MG TABLET (FOR DETOX USE ONLY) PO ONE (15:11)
[2024-04-07] MEDS: NICOTINE POLACRILEX 2 MG GUM BUC PRN (15:43)
[2024-04-07] MEDS: cloNIDine HCL 0.1 MG TABLET PO SCH (17:51)
[2024-04-07] MEDS: diazePAM 5 MG TABLET PO SCH (17:51)
[2024-04-07] MEDS: SUVOREXANT 5 MG TABLET PO PRN (22:31)
[2024-04-07] MEDS: THIAMINE 100 MG TABLET PO SCH (22:33)
[2024-04-07] MEDS: BUPRENORPHINE/NALOXONE 0.5 MG/0.125 MG FILM SL ONE (22:34)
[2024-04-07] MEDS: MELATONIN 5 MG TABLETS PO SCH (22:34)
[2024-04-08] MEDS: ONDANSETRON *ODT* 4 MG TABLET SL PRN (09:52)
[2024-04-08] MEDS: BUPRENORPHINE/NALOXONE 0.5 MG/0.125 MG FILM SL SCH (10:16)
[2024-04-09] MEDS: diazePAM 5 MG TABLET PO SCH (07:14)
[2024-04-09] MEDS: methaDONE HCL 10 MG TABLET (FOR DETOX USE ONLY) PO ONE (10:14)
[2024-04-09] MEDS: BUPRENORPHINE/NALOXONE 2 MG/0.5 MG FILM PACKET SL SCH (10:15)
[2024-04-09 14:30] LABS: POTASSIUM 3.8 mmol/L (3.5-5.1)
[2024-04-09 14:35] LABS: CALCIUM 9.5 mg/dL (8.5-10.1)
[2024-04-09 14:36] LABS: ALBUMIN 3.9 g/dl (3.4-5.0); BLOOD UREA NITROGEN 8.7 mg/dL (7-18)
[2024-04-09 14:38] LABS: HEMATOCRIT 37.9 % (35.4-49); HEMOGLOBIN 12.8 GM/dL (11.7-16.9); MCHC 33.9 g/dl (32.0-35.9); MEAN CELL VOLUME 85.8 fl (80-96); MEAN PLT VOLUME 7.7 fl (7.5-11.1); PLATELET COUNT 363 10^3/uL (134-434); RBC 4.42 M/mm3 (4.00-5.60); RDW 14.6 % (11.9-15.9); WHITE BLOOD COUNT 9.6 K/mm3 (4.0-10.0)
[2024-04-09 14:39] LABS: CREATININE 0.7 mg/dL (0.55-1.3)
[2024-04-09 14:40] LABS: BILIRUBIN,TOTAL 0.4 mg/dL (0.2-1); TOT PROT 8.1 g/dl (6.4-8.2)
[2024-04-09] MEDS: SUVOREXANT 10 MG TABLET PO PRN (22:48)
[2024-04-09] MEDS: cloNIDine HCL 0.1 MG TABLET PO PRN (22:49)
[2024-04-09] MEDS: methaDONE HCL 10 MG TABLET PO ONE (22:54)
[2024-04-09] MEDS: METHOCARBAMOL 500 MG TABLET PO ONE (23:02)
[2024-04-10] MEDS: diazePAM 5 MG TABLET PO SCH (05:08)
[2024-04-10] MEDS ORDERED: BUPRENORPHINE/NALOXONE 4 MG/1 MG FILM PACKET SL SCH (10:00)
[2024-04-10] MEDS ORDERED: BACITRACIN 0.9 GM PACKET ONE (19:18)
[2024-04-10] MEDS: BACITRACIN 0.9 GM PACKET TP PRN (22:03)
[2024-04-11] MEDS: diazePAM 5 MG TABLET PO ONE (05:32)
[2024-04-11] MEDS ORDERED: BUPRENORPHINE/NALOXONE 8 MG/2 MG FILM PACKET SL SCH (10:00)
[2024-04-11] MEDS: methaDONE HCL 10 MG TABLET (FOR DETOX USE ONLY) PO ONE (10:14)
[2024-04-12 09:15] VITALS: BP 137/87; PULSE 75; RESP 18; TEMP 98.4
[2024-04-12] MEDS ORDERED: BUPRENORPHINE/NALOXONE 8 MG/2 MG FILM PACKET SL SCH (10:00)
== END 2024-04-12 09:25 | disposition other institution (70) | DRG 773 ==
LOC: YASAS 19:57 → Y3N 23:04
PROVIDERS: ADMIT Allergy & Immunology; ATTEND Surgery
PROC: HZ2ZZZZ Detoxification Services for Substance Abuse Treatment (ICD-10-PCS; principal; 2024-04-06)
DX: F11.23 Opioid dependence with withdrawal (principal); F10.230 Alcohol dependence with withdrawal, uncomplicated; F13.20 Sedative, hypnotic or anxiolytic dependence, uncomplicated; F14.20 Cocaine dependence, uncomplicated; F17.210 Nicotine dependence, cigarettes, uncomplicated; F19.280 Other psychoactive substance dependence with psychoactive substance-induced anxiety disorder; F19.282 Other psychoactive substance dependence with psychoactive substance-induced sleep disorder; F19.24 Other psychoactive substance dependence with psychoactive substance-induced mood disorder; Z88.6 Allergy status to analgesic agent
CPT/HCPCS: 36415; 80053; 80305; 85027; 86780; 93005; 93010; Q0162

== ENCOUNTER 2024-08-30 11:18 | Inpatient (IN) | payer BC ==
[2024-08-30 12:25] VITALS: BMI 24.7
[2024-08-30] MEDS ORDERED: POLYETHYLENE GLYCOL (HEALTHYLAX) 3350 17 GM PACKET PO PRN (12:26)
[2024-08-30] MEDS ORDERED: ONDANSETRON *ODT* 4 MG TABLET SL PRN (12:26)
[2024-08-30] MEDS ORDERED: IBUPROFEN 400 MG TABLET (FP) PO PRN (12:26)
[2024-08-30] MEDS ORDERED: BENZONATATE 200 MG CAPSULE PO PRN (12:26)
[2024-08-30] MEDS ORDERED: MAG HYDROX/AL HYDROX/SIMETH 30 ML UNIT-DOSE CUP PO PRN (12:26)
[2024-08-30] MEDS ORDERED: NICOTINE POLACRILEX 2 MG GUM BUC PRN (12:26)
[2024-08-30] MEDS ORDERED: hydrOXYzine PAMOATE 25 MG CAPSULE (FP) PO PRN (12:26)
[2024-08-30] MEDS ORDERED: BENZOCAINE/MENTHOL (CHLORASEPTIC ) LOZENGE MM PRN (12:26)
[2024-08-30] MEDS ORDERED: MAGNESIUM HYDROX 2400MG/30ML ORAL SUSPENSION 30 ML CUP PO PRN (12:26)
[2024-08-30] MEDS ORDERED: BISMUTH SUBSALICYLATE 262 MG/15 ML BTL PO PRN (12:26)
[2024-08-30] MEDS ORDERED: DICYCLOMINE HCL 10 MG CAPSULE PO PRN (12:26)
[2024-08-30] MEDS ORDERED: NALOXONE (NYS OPIOID OVERDOSE PROGRAM) 4 MG/0.1 ML SPRAY NS PRN (12:26)
[2024-08-30] MEDS ORDERED: NALOXONE (NARCAN) HCL 4 MG/0.1 ML SPRAY NS PRN (12:26)
[2024-08-30] MEDS ORDERED: METHOCARBAMOL 500 MG TABLET PO PRN (12:26)
[2024-08-30] MEDS ORDERED: LOPERAMIDE HCL 2 MG CAPSULE PO PRN (12:26)
[2024-08-30] MEDS ORDERED: guaiFENesin 600 MG TABLET.ER (FP) PO PRN (12:26)
[2024-08-30] MEDS: SULFAMETHOXAZOLE/TRIMETHOPRIM 800MG/160MG D.S. TABLET PO SCH (13:20)
[2024-08-30] MEDS: diazePAM 5 MG TABLET PO PRN (13:21)
[2024-08-30] MEDS: IBUPROFEN 600 MG TABLET (FP) PO PRN (16:57)
[2024-08-30] MEDS: diazePAM 5 MG TABLET PO SCH (17:19)
[2024-08-30] MEDS: BACITRACIN 0.9 GM PACKET TP SCH (18:03)
[2024-08-30 20:10] VITALS: BP 122/72; PULSE 63; RESP 16; TEMP 99.5
[2024-08-30] MEDS: MELATONIN 5 MG TABLETS PO SCH (22:55)
[2024-08-30] MEDS: THIAMINE 100 MG TABLET PO SCH (22:55)
[2024-08-31] MEDS: methaDONE HCL 40 MG DISPERSABLE TABLET PO SCH (06:26)
[2024-08-31] MEDS ORDERED: PRENATAL VITAMINS W/ FOLIC ACID TABLET (FP) PO SCH (10:00)
[2024-08-31] MEDS ORDERED: PNEUMOC 20-VAL CONJ-DIP CRM/PF 0.5 ML SYRINGE IM ONE (12:00)
[2024-09-01] MEDS ORDERED: diazePAM 5 MG TABLET PO SCH (06:00)
[2024-09-02] MEDS ORDERED: diazePAM 5 MG TABLET PO SCH (06:00)
[2024-09-03] MEDS ORDERED: diazePAM 5 MG TABLET PO ONE (06:00)
== END 2024-08-31 01:00 | disposition short-term general hospital (02) | DRG 773 ==
LOC: YASAS 11:18 → Y3N 12:41
PROVIDERS: ADMIT Allergy & Immunology; ATTEND Surgery
PROC: HZ2ZZZZ Detoxification Services for Substance Abuse Treatment (ICD-10-PCS; principal; 2024-08-30)
DX: F10.230 Alcohol dependence with withdrawal, uncomplicated (principal); F13.230 Sedative, hypnotic or anxiolytic dependence with withdrawal, uncomplicated; F11.20 Opioid dependence, uncomplicated; F14.20 Cocaine dependence, uncomplicated; F17.210 Nicotine dependence, cigarettes, uncomplicated; F19.24 Other psychoactive substance dependence with psychoactive substance-induced mood disorder; F41.9 Anxiety disorder, unspecified; F32.A Depression, unspecified; L03.811 Cellulitis of head [any part, except face]; L03.221 Cellulitis of neck
CPT/HCPCS: 80305; 80307

== ENCOUNTER 2024-08-30 21:49 | Inpatient (IN) | payer BC ==
[2024-08-30] MEDS ORDERED: PIPERACILLIN/TAZOB 3.375 GM 3.375 GM/50 ML BAG IVPB ONE (23:41)
[2024-08-30] MEDS: PIPERACILLIN/TAZOB 3.375 GM 3.375 GM in DEXTROSE 5%-WATER - 50 ML IVPB ONE (23:55)
[2024-08-31] MEDS ORDERED: VANCOMYCIN 1 GRAM (PRE-DOCKED) 1,000 MG/250 ML BAG IVPB ONE (00:16)
[2024-08-31] MEDS: VANCOMYCIN HCL 1,500 MG in DEXTROSE 5%-WATER - 500 ML IVPB ONE (00:16)
[2024-08-31] MEDS ORDERED: VANCOMYCIN 500 MG VIAL (RESTRICTED TO ID ONLY) ONE (00:16)
[2024-08-31 01:03] LABS: BASO % 0.3 % (0-2.0); EOS % 0.3 % (0-4.5); HEMATOCRIT 34.4 % (35.4-49); HEMOGLOBIN 11.5 GM/dL (11.7-16.9); MCH 29.3 pg (25.7-33.7); MCHC 33.6 g/dl (32.0-35.9); MEAN CELL VOLUME 87.3 fl (80-96); MEAN PLT VOLUME 8.6 fl (7.5-11.1); MONO % 14.4 % (3.8-10.2); PLATELET COUNT 350 10^3/uL (134-434); RBC 3.94 M/mm3 (4.00-5.60); RDW 14.3 % (11.9-15.9)
[2024-08-31 01:22] LABS: POTASSIUM 3.5 mmol/L (3.5-5.1)
[2024-08-31 01:23] LABS: CALCIUM 8.9 mg/dL (8.5-10.1)
[2024-08-31 01:25] LABS: ALBUMIN 2.9 g/dl (3.4-5.0)
[2024-08-31 01:27] LABS: CREATININE 0.9 mg/dL (0.55-1.3)
[2024-08-31 01:29] LABS: BILIRUBIN,TOTAL 0.4 mg/dL (0.2-1); TOT PROT 7.8 g/dl (6.4-8.2)
[2024-08-31] MEDS: SODIUM CHLORIDE 1,000 ML IV STA (03:32)
[2024-08-31] MEDS: diazePAM CARPU-JECT 10 MG/2 ML DISP.SYRIN IVPUSH ONE (03:32)
[2024-08-31] MEDS: LACTATED RINGERS SOLUTION 1,000 ML/1,000 ML INFUS.BAG IV SCH (03:32)
[2024-08-31] MEDS: SODIUM CHLORIDE 1,000 ML IV SCH (05:04)
[2024-08-31] MEDS: diazePAM 5 MG TABLET PO SCH (05:17)
[2024-08-31] MEDS: KETOROLAC TROMETHAMINE 30 MG/1 ML VIAL IVPUSH ONE (06:32)
[2024-08-31] MEDS ORDERED: KETOROLAC TROMETHAMINE 30 MG/1 ML VIAL ONE (06:34)
[2024-08-31 07:53] LABS: POTASSIUM 4.5 mmol/L (3.5-5.1)
[2024-08-31 08:12] LABS: BILIRUBIN,TOTAL 0.5 mg/dL (0.2-1)
[2024-08-31 08:13] LABS: ALBUMIN 2.6 g/dl (3.4-5.0); CALCIUM 8.3 mg/dL (8.5-10.1)
[2024-08-31 08:14] LABS: BLOOD UREA NITROGEN 13.7 mg/dL (7-18); MAGNESIUM 2.1 mg/dL (1.8-2.4); TOT PROT 7.1 g/dl (6.4-8.2)
[2024-08-31 08:16] LABS: CREATININE 0.8 mg/dL (0.55-1.3); PHOSPHOROUS 2.7 mg/dL (2.5-4.9)
[2024-08-31] MEDS ORDERED: ESCITALOPRAM OXALATE 10 MG TABLET ONE (10:00)
[2024-08-31] MEDS ORDERED: CEFTRIAXONE 1 GM/50 ML BAG ONE (10:00)
[2024-08-31] MEDS ORDERED: diazePAM 5 MG TABLET ONE ×4 (10:00→22:37)
[2024-08-31] MEDS: ESCITALOPRAM OXALATE 10 MG TABLET PO SCH (10:08)
[2024-08-31] MEDS: CEFTRIAXONE 1 GM in DEXTROSE 5%-WATER - 50 ML IVPB SCH (10:08)
[2024-08-31] MEDS ORDERED: KETOROLAC TROMETHAMINE 15 MG/ML VIAL ONE ×2 (10:50→17:58)
[2024-08-31] MEDS ORDERED: methaDONE HCL 40 MG DISPERSABLE TABLET ONE (10:50)
[2024-08-31] MEDS: KETOROLAC TROMETHAMINE 15 MG/ML VIAL IVPUSH PRN (11:23)
[2024-08-31] MEDS: methaDONE HCL 40 MG DISPERSABLE TABLET PO SCH (11:23)
[2024-08-31] MEDS ORDERED: PIPERACILLIN/TAZOB 3.375 GM 3.375 GM/50 ML BAG IVPB ONE (14:06)
[2024-08-31] MEDS: PIPERACILLIN/TAZOB 3.375 GM 3.375 GM in DEXTROSE 5%-WATER - 50 ML IVPB SCH (14:15)
[2024-08-31] MEDS ORDERED: VANCOMYCIN/WATER 1250 MG 1,250 MG/250 ML BAG IVPB ONE (16:44)
[2024-08-31] MEDS: VANCOMYCIN/WATER 1250 MG 1,250 MG/250 ML BAG IVPB SCH (16:48)
[2024-08-31] MEDS: NICOTINE POLACRILEX 2 MG GUM BUC PRN (17:51)
[2024-08-31] MEDS ORDERED: PIPERACILLIN/TAZOB 4.5 GM 4.5 GM/100 ML BAG IVPB ONE (17:52)
[2024-08-31] MEDS: PIPERACILLIN/TAZOB 4.5 GM 4.5 GM in DEXTROSE 5%-WATER 100 ML IVPB SCH (18:15)
[2024-08-31] MEDS: diazePAM 5 MG TABLET PO PRN (21:03)
[2024-09-01 02:26] VITALS: BMI 25.0
[2024-09-01] MEDS: diazePAM 5 MG TABLET PO SCH (05:35)
[2024-09-01] MEDS: LORazepam 1 MG TABLET PO ONE ×2 (12:45→14:01)
[2024-09-01 13:14] LABS: BASO % 0.7 % (0-2.0); EOS % 2.6 % (0-4.5); HEMATOCRIT 35.1 % (35.4-49); HEMOGLOBIN 11.6 GM/dL (11.7-16.9); LYMPH % 23.3 % (8-40); MCH 28.9 pg (25.7-33.7); MCHC 33.1 g/dl (32.0-35.9); MEAN CELL VOLUME 87.4 fl (80-96); MEAN PLT VOLUME 8.8 fl (7.5-11.1); MONO % 8.6 % (3.8-10.2); NEUT % 64.8 % (42.8-82.8); PLATELET COUNT 333 10^3/uL (134-434); RBC 4.02 M/mm3 (4.00-5.60); RDW 14.9 % (11.9-15.9); WHITE BLOOD COUNT 9.8 K/mm3 (4.0-10.0)
[2024-09-01 13:30] LABS: POTASSIUM 4.4 mmol/L (3.5-5.1)
[2024-09-01 13:32] LABS: CALCIUM 8.6 mg/dL (8.5-10.1)
[2024-09-01 13:33] LABS: ALBUMIN 2.5 g/dl (3.4-5.0); MAGNESIUM 1.9 mg/dL (1.8-2.4)
[2024-09-01 13:36] LABS: CREATININE 0.6 mg/dL (0.55-1.3)
[2024-09-01 13:38] LABS: BILIRUBIN,TOTAL 0.2 mg/dL (0.2-1); TOT PROT 6.2 g/dl (6.4-8.2)
[2024-09-01 13:58] LABS: ERYTHROCYTE SEDIMENTATION RATE 83 mm/hr (0-10)
[2024-09-01] MEDS: BACITRACIN ZINC 15 GM TUBE TOPICAL OINTMENT TP SCH (16:56)
[2024-09-01] MEDS: PIPERACILLIN/TAZOB 4.5 GM 4.5 GM/100 ML BAG IVPB SCH (17:15)
[2024-09-01] MEDS: LORazepam 2 MG/ML SDV VIAL IVPUSH PRN (21:03)
[2024-09-02 03:08] VITALS: RESP 18
[2024-09-02] MEDS: diazePAM 5 MG TABLET PO SCH (05:58)
[2024-09-02] MEDS ORDERED: LORazepam 2 MG TABLET PO PRN (09:15)
[2024-09-02] MEDS: levoFLOXacin 750 MG TABLET PO SCH (11:38)
[2024-09-02] MEDS: CLINDAMYCIN HCL 150 MG CAPSULE (FP) PO SCH (11:48)
[2024-09-02 11:59] LABS: BASO % 0.5 % (0-2.0); EOS % 4.2 % (0-4.5); HEMATOCRIT 32.1 % (35.4-49); HEMOGLOBIN 10.4 GM/dL (11.7-16.9); LYMPH % 29.9 % (8-40); MCH 28.9 pg (25.7-33.7); MCHC 32.5 g/dl (32.0-35.9); MEAN CELL VOLUME 88.8 fl (80-96); MEAN PLT VOLUME 8.1 fl (7.5-11.1); MONO % 7.9 % (3.8-10.2); NEUT % 57.5 % (42.8-82.8); PLATELET COUNT 360 10^3/uL (134-434); RBC 3.62 M/mm3 (4.00-5.60); RDW 14.2 % (11.9-15.9); WHITE BLOOD COUNT 7.8 K/mm3 (4.0-10.0)
[2024-09-02 12:16] LABS: POTASSIUM 4.2 mmol/L (3.5-5.1)
[2024-09-02 12:19] LABS: ALBUMIN 2.7 g/dl (3.4-5.0); CALCIUM 8.8 mg/dL (8.5-10.1); MAGNESIUM 2.1 mg/dL (1.8-2.4)
[2024-09-02 12:23] LABS: CREATININE 0.6 mg/dL (0.55-1.3)
[2024-09-02 12:26] LABS: BILIRUBIN,TOTAL 0.2 mg/dL (0.2-1); TOT PROT 6.6 g/dl (6.4-8.2)
[2024-09-02 12:27] LABS: BLOOD UREA NITROGEN 12.1 mg/dL (7-18)
[2024-09-02 13:37] VITALS: BP 120/78; PULSE 72; TEMP 97.9
[2024-09-03] MEDS ORDERED: diazePAM 5 MG TABLET PO ONE (06:00)
== END 2024-09-02 13:59 | disposition other institution (70) | DRG 113 ==
LOC: JER 21:49 → JERBED 08-31 01:21 → J8W 09-01 00:33
PROVIDERS: ADMIT Internal Medicine; ATTEND Nurse Practitioner Acute Care
DX: J02.0 Streptococcal pharyngitis (principal); H60.11 Cellulitis of right external ear; F19.10 Other psychoactive substance abuse, uncomplicated; F11.20 Opioid dependence, uncomplicated; F17.200 Nicotine dependence, unspecified, uncomplicated; G47.00 Insomnia, unspecified; F10.230 Alcohol dependence with withdrawal, uncomplicated; M54.2 Cervicalgia; R07.0 Pain in throat
CPT/HCPCS: 36415; 70491-TC; 80053; 83735; 84100; 85025; 85651; 86140; 87040; 87081; 87651; 93005; 93010; 99285-25

== ENCOUNTER 2024-09-02 15:33 | Inpatient (IN) | payer BC ==
[2024-09-02 17:09] VITALS: BMI 24.8
[2024-09-02] MEDS ORDERED: NICOTINE POLACRILEX 2 MG LOZENGE BC PRN (17:51)
[2024-09-02] MEDS ORDERED: P-EPHED 60MG/TRIPROLIDI 2.5MG TABLET PO PRN (17:51)
[2024-09-02] MEDS ORDERED: NALOXONE (NARCAN) HCL 4 MG/0.1 ML SPRAY NS PRN (17:51)
[2024-09-02] MEDS ORDERED: BENZONATATE 200 MG CAPSULE PO PRN (17:51)
[2024-09-02] MEDS ORDERED: IBUPROFEN 400 MG TABLET (FP) PO PRN (17:51)
[2024-09-02] MEDS ORDERED: NALOXONE (NYS OPIOID OVERDOSE PROGRAM) 4 MG/0.1 ML SPRAY NS PRN (17:51)
[2024-09-02] MEDS ORDERED: BENZOCAINE/MENTHOL (CHLORASEPTIC ) LOZENGE MM PRN (17:51)
[2024-09-02] MEDS ORDERED: hydrOXYzine PAMOATE 25 MG CAPSULE (FP) PO PRN (17:51)
[2024-09-02] MEDS ORDERED: MAGNESIUM HYDROX 2400MG/30ML ORAL SUSPENSION 30 ML CUP PO PRN (17:51)
[2024-09-02] MEDS ORDERED: POLYETHYLENE GLYCOL (HEALTHYLAX) 3350 17 GM PACKET PO PRN (17:51)
[2024-09-02] MEDS ORDERED: guaiFENesin 600 MG TABLET.ER (FP) PO PRN (17:51)
[2024-09-02] MEDS ORDERED: LOPERAMIDE HCL 2 MG CAPSULE PO PRN (17:51)
[2024-09-02] MEDS ORDERED: BISMUTH SUBSALICYLATE 524 MG/30 ML PO PRN (17:51)
[2024-09-02] MEDS ORDERED: ONDANSETRON *ODT* 4 MG TABLET SL PRN (17:51)
[2024-09-02] MEDS ORDERED: IBUPROFEN 600 MG TABLET (FP) PO PRN (17:51)
[2024-09-02] MEDS ORDERED: MAG HYDROX/AL HYDROX/SIMETH 30 ML UNIT-DOSE CUP PO PRN (17:51)
[2024-09-02] MEDS ORDERED: DICYCLOMINE HCL 10 MG CAPSULE PO PRN (17:51)
[2024-09-02] MEDS ORDERED: METHOCARBAMOL 500 MG TABLET PO PRN (17:51)
[2024-09-02] MEDS ORDERED: diazePAM 5 MG TABLET ONE (18:38)
[2024-09-02] MEDS: diazePAM 5 MG TABLET PO SCH (18:40)
[2024-09-02] MEDS: NICOTINE POLACRILEX 2 MG GUM BUC PRN (20:14)
[2024-09-02] MEDS: CLINDAMYCIN HCL 150 MG CAPSULE (FP) PO SCH (22:03)
[2024-09-02] MEDS: MELATONIN 5 MG TABLETS PO SCH (22:04)
[2024-09-02] MEDS: diazePAM 5 MG TABLET PO PRN (22:04)
[2024-09-02] MEDS: THIAMINE 100 MG TABLET PO SCH (22:05)
[2024-09-03] MEDS: diazePAM 5 MG TABLET PO ONE (06:01)
[2024-09-03] MEDS: levoFLOXacin 750 MG TABLET PO SCH (06:02)
[2024-09-03] MEDS ORDERED: methaDONE HCL 10 MG TABLET PO SCH (09:00)
[2024-09-03] MEDS: methaDONE HCL 10 MG TABLET PO SCH (09:30)
[2024-09-03] MEDS: PRENATAL VITAMINS W/ FOLIC ACID TABLET (FP) PO SCH (09:37)
[2024-09-03] MEDS: BACITRACIN 0.9 GM PACKET TP SCH (09:37)
[2024-09-03 09:54] VITALS: RESP 18
[2024-09-03 13:05] VITALS: BP 108/72; PULSE 83; TEMP 97.5
== END 2024-09-03 13:45 | disposition home or self-care (01) | DRG 773 ==
LOC: YASAS 15:33 → Y3N 18:07
PROVIDERS: ADMIT Allergy & Immunology; ATTEND Surgery
PROC: HZ2ZZZZ Detoxification Services for Substance Abuse Treatment (ICD-10-PCS; principal; 2024-09-02)
DX: F10.230 Alcohol dependence with withdrawal, uncomplicated (principal); F13.230 Sedative, hypnotic or anxiolytic dependence with withdrawal, uncomplicated; F11.20 Opioid dependence, uncomplicated; F14.20 Cocaine dependence, uncomplicated; F17.210 Nicotine dependence, cigarettes, uncomplicated; H60.11 Cellulitis of right external ear; J02.0 Streptococcal pharyngitis
CPT/HCPCS: 80305